=== PATIENT | female | born 1990 | race Caucasian/White ===

== ENCOUNTER → 2017-01-08 | Outpatient (CLI) | payer BC ==
[2017-01-08 16:38] LABS: BASOPHILS # (AUTO) 0.1 X10^3/uL (0.0-0.1); BASOPHILS % (AUTO) 0.5 % (0.2-1.0); EOSINOPHILS % (AUTO) 0.2 % (0.9-2.9); HEMATOCRIT 35.7 % (36.0-47.0); HEMOGLOBIN 12.3 g/dL (12.0-16.0); LYMPHOCYTES # (AUTO) 2.3 X10^3/uL (1.3-2.9); LYMPHOCYTES % (AUTO) 22.4 % (21.0-51.0); MEAN CORPUSCULAR HEMOGLOBIN 30.7 pg (27.0-34.0); MEAN CORPUSCULAR HGB CONC 34.5 g/dL (33.0-35.0); MEAN CORPUSCULAR VOLUME 88.9 fL (80.0-100.0); MEAN PLATELET VOLUME 11.8 fL (7.4-11.0); MONOCYTES # (AUTO) 0.5 x10^3/uL (0.3-0.8); MONOCYTES % (AUTO) 5.1 % (0.0-13.0); NEUTROPHILS # (AUTO) 7.3 x10^3/uL (2.2-4.8); NEUTROPHILS % (AUTO) 71.8 % (42.0-75.0); PLATELET COUNT 146 X10^3/uL (150.0-450.0); RED BLOOD COUNT 4.01 X10^6/uL (3.5-5.4); RED CELL DISTRIBUTION WIDTH 13.3 % (11.6-16.5); WHITE BLOOD COUNT 10.2 X10^3/uL (3.6-10.0)
[2017-01-08 17:02] LABS: BILIRUBIN,URINE NEGATIVE (NEGATIVE); BLOOD/HEMOGLOBIN,URINE NEGATIVE (NEGATIVE); GLUCOSE, URINE NEGATIVE (NEGATIVE); KETONES,URINE 3+ (NEGATIVE); LEUKOCYTE ESTERASE ,URINE 1+ (NEGATIVE); NITRITES,URINE NEGATIVE (NEGATIVE); PH,URINE 6.5 (5.0 - 8.0); PROTEIN,URINE 1+ (NEGATIVE); UROBILINOGEN,URINE NORMAL (NORMAL)
[2017-01-08 17:20] LABS: BLOOD UREA NITROGEN 12 mg/dL (7-18); CALCIUM 8.8 mg/dL (8.5-10.1); CARBON DIOXIDE 22.9 mmol/L (21-32); CHLORIDE 103 mmol/L (98-107); CREATININE 0.62 mg/dL (0.55-1.02); GLUCOSE 73 mg/dL (65-99); SODIUM 138 mmol/L (136-145); eGFR BLACK RACES > 60 (>60); eGFR NON BLACK RACES > 60 (>60)
[2017-01-08 17:30] LABS: AMORPHOUS SEDIMENT,UR TRACE /HPF (NEGATIVE); APPEARANCE,URINE CLEAR (CLEAR); BACTERIA,URINE TRACE /HPF (NEGATIVE); COLOR,URINE YELLOW (YELLOW); RBC,URINE NONE SEEN /HPF (NEGATIVE); SQUAMOUS EPITHELIAL CELL,UR NUMEROUS /HPF (NEGATIVE)
== END ==
LOC: LAB 15:31
PROVIDERS: ATTEND Specialist
DX: Z01.818 Encounter for other preprocedural examination (principal); Z34.83 Encounter for supervision of other normal pregnancy, third trimester
CPT/HCPCS: 36415; 80048; 81001; 85025; 86592; 86850; 86900; 86901

== ENCOUNTER 2017-01-15 06:10 | Inpatient (IN) | payer BC ==
[2017-01-15] MEDS ORDERED: D5LR 1000ML W PITOCIN 10 U/L 1,000 ML IV ONE (06:31)
[2017-01-15] MEDS ORDERED: D5 1/2 NS 1000ML W PITOCIN 20 U/L 1,000 ML IV ONE (06:32)
[2017-01-15] MEDS ORDERED: D5 1/2 NS 1000 ML 1,000 ML IV ONE (06:32)
[2017-01-15] MEDS ORDERED: PITOCIN ONE (06:32)
--- NOTE | 2017-01-15 07:02 | DR.OB ---
OB Quick Note - Assessment/Plan Assessment/Plan: L&D 01/15/17 at 6:45am S-No complaint. O-Afebrile,VSS CGI=093 with good LTV, +accel, no decel. CTX=none CVX=1cm/50%/-1/VTX AROM with clear fluid. IUPC placed but FSE not able to be placed. A-IUP at 38 6/7 weeks for induction A1DM Polyhydramnios Rh- P-Begin pitocin induction Anticipate
[2017-01-15] MEDS ORDERED: PITOCIN IVP ONE (07:10)
[2017-01-15] MEDS ORDERED: PITOCIN 10 UNITS in D5 LR 1000 ML 1,000 ML IV PRN (07:10)
[2017-01-15] MEDS ORDERED: MORPHINE SULFATE INJ 2 MG IVP PRN (07:10)
[2017-01-15] MEDS ORDERED: REGLAN INJ 10 MG VIAL IVP PRN ×3 (07:10→15:32)
[2017-01-15] MEDS ORDERED: PHENERGAN INJ 25 MG IV PRN ×2 (07:10→15:32)
[2017-01-15] MEDS ORDERED: D5 1/2 NS 1000 ML 1,000 ML IV SCH (07:10)
[2017-01-15] MEDS ORDERED: NUBAIN INJ 200 MG VIAL MULTIDOSE IVP PRN (07:10)
[2017-01-15] MEDS ORDERED: NAROPIN EPIDURAL 0.2% + FENTANYL 90MCG 60 ML EPI ONE (09:27)
[2017-01-15] MEDS ORDERED: FENTANYL INJ 100 mcg ONE (09:27)
[2017-01-15] MEDS ORDERED: LR 1000 ML IV 1,000 ML IV ONE ×3 (09:27→14:15)
[2017-01-15] MEDS ORDERED: NAROPIN EPIDURAL 0.2% 97 ML with FENTANYL INJ 250 mcg 150 MCG EPI PRN ×2 (09:28)
[2017-01-15] MEDS ORDERED: REGLAN INJ 10 MG VIAL ONE ×2 (09:32→11:43)
[2017-01-15] MEDS ORDERED: DIPRIVAN VIAL ONE (09:32)
[2017-01-15] MEDS ORDERED: ZOFRAN INJ 4 MG VIAL ONE (09:32)
[2017-01-15] MEDS ORDERED: XYLOCAINE 2 % (PLAIN) ONE (09:32)
--- NOTE | 2017-01-15 12:03 | DR.OB ---
OB Quick Note - Assessment/Plan Assessment/Plan: L&D 01/15/17 at 11:55am Pitocin=3mu/min. S-No complaint. s/p epidural. O-Afebrile,VSS IMY=119 with good LTV, +accel, no decel. CTX=q 2 min., about 45-55mmHg CVX=2cm/80%/-1/VTX A-IUP at 38 6/7 weeks for induction A1DM Polyhydramnios Rh- P-Cont. pitocin induction Anticipate
[2017-01-15] MEDS ORDERED: NS 50 ML IV + SPIKE MINIBAG* 50 ML IV ONE (14:11)
[2017-01-15] MEDS ORDERED: ANCEF VIAL 1 GM ONE (14:11)
[2017-01-15] MEDS ORDERED: XYLOCAINE 2% and EPINEPHRINE 1:100,000 ONE (14:12)
[2017-01-15] MEDS ORDERED: NS IRRIGATION 1000 ML 1,000 ML IR ONE (14:37)
[2017-01-15] MEDS ORDERED: DURAMORPH ONE (14:47)
[2017-01-15] MEDS ORDERED: NS 1000 ML 1,000 ML ONE (15:00)
[2017-01-15] MEDS ORDERED: PHENERGAN INJ 25 MG IVP PRN (15:22)
[2017-01-15] MEDS ORDERED: BENADRYL INJ 50 MG VIAL IVP PRN ×2 (15:22→15:32)
[2017-01-15] MEDS ORDERED: ZOFRAN INJ 4 MG VIAL IVP PRN ×2 (15:22→15:32)
[2017-01-15] MEDS ORDERED: MYLICON TAB 80 MG CHEW PO PRN (15:32)
[2017-01-15] MEDS ORDERED: ADACEL TDaP IM ONE (15:32)
[2017-01-15] MEDS ORDERED: PERCOCET TAB 5/325 MG PO PRN (15:32)
[2017-01-15] MEDS ORDERED: TORADOL 30 MG VIAL IVP PRN (15:32)
[2017-01-15] MEDS ORDERED: HYPERRHO S/D (or RHOGAM) IM PRN (15:32)
[2017-01-15] MEDS ORDERED: NARCAN INJ IVP PRN (15:32)
[2017-01-15] MEDS ORDERED: D5 1/2 NS 1000 ML 1,000 ML with PITOCIN 20 UNITS IV SCH ×2 (16:00)
[2017-01-15] MEDS: ZANTAC PO SCH (21:22)
[2017-01-16 05:25] LABS: HEMATOCRIT 26.9 % (36.0-47.0); HEMOGLOBIN 9.4 g/dL (12.0-16.0)
[2017-01-16] MEDS ORDERED: PERCOCET TAB 5/325 MG PO PRN (06:06)
[2017-01-16] MEDS: PRENATAL PLUS PO SCH (09:29)
[2017-01-16] MEDS: ZANTAC PO SCH ×2 (09:29→21:00)
[2017-01-16] MEDS: COLACE CAP 100 MG PO SCH ×2 (09:29→21:00)
[2017-01-16] MEDS: MOTRIN TAB 800 MG PO PRN ×2 (09:32→17:52)
[2017-01-16] MEDS: BACTROBAN OINT TOP SCH ×2 (13:39→22:00)
[2017-01-17] MEDS: MOTRIN TAB 800 MG PO PRN (05:42)
[2017-01-17] MEDS: BACTROBAN OINT TOP SCH (05:48)
[2017-01-17 08:20] VITALS: BP 131/73
[2017-01-17] MEDS: PRENATAL PLUS PO SCH (09:34)
[2017-01-17] MEDS: ZANTAC PO SCH (09:34)
[2017-01-17] MEDS: COLACE CAP 100 MG PO SCH (09:34)
== END 2017-01-17 11:05 | disposition home or self-care (01) | DRG 765 ==
LOC: LD 06:10 → MED/SURG 15:53
PROVIDERS: ADMIT Specialist; ATTEND Specialist
PROC: 3E033VJ Introduction of Other Hormone into Peripheral Vein, Percutaneous Approach (ICD-10-PCS; 2017-01-15)
PROC: 10907ZC Drainage of Amniotic Fluid, Therapeutic from Products of Conception, Via Natural or Artificial Opening (ICD-10-PCS; 2017-01-15)
PROC: 3E0234Z Introduction of Serum, Toxoid and Vaccine into Muscle, Percutaneous Approach (ICD-10-PCS; 2017-01-15)
PROC: 3E0234Z Introduction of Serum, Toxoid and Vaccine into Muscle, Percutaneous Approach (ICD-10-PCS; 2017-01-15)
PROC: 10D00Z1 Extraction of Products of Conception, Low, Open Approach (ICD-10-PCS; principal; 2017-01-15 12:15)
DX: O24.410 Gestational diabetes mellitus in pregnancy, diet controlled (principal); O40.3XX0 Polyhydramnios, third trimester, not applicable or unspecified; O36.0930 Maternal care for other rhesus isoimmunization, third trimester, not applicable or unspecified; Z37.0 Single live birth; O77.8 Labor and delivery complicated by other evidence of fetal stress; Z3A.38 38 weeks gestation of pregnancy; Z23 Encounter for immunization; Z29.13 Encounter for prophylactic Rho(D) immune globulin
CPT/HCPCS: 36415; 85014; 85018; 85461; 86850; 86900; 86901; A4216; A4222; S0197; J0690; J1885; J2001; J2405; J2590; J2765; J2790; J3010; J3490; J7042; J7120

== ENCOUNTER 2020-07-08 06:24 | Inpatient (IN) ==
[2020-07-08] MEDS ORDERED: D5 1/2 NS 1000 ML 1,000 ML IV SCH (06:30)
[2020-07-08] MEDS ORDERED: ANCEF VIAL 1 GRAM IVP ONE (06:30)
[2020-07-08] MEDS ORDERED: LR 1000 ML IV 1,000 ML IV ONE (06:34)
[2020-07-08] MEDS ORDERED: ANCEF 1 GRAM IV PREMIX* 1 G/50 ML BAG IV ONE (06:34)
[2020-07-08] MEDS ORDERED: NS 1000 ML 1,000 ML ONE (07:03)
[2020-07-08] MEDS ORDERED: DILAUDID INJ ONE (07:03)
[2020-07-08] MEDS ORDERED: DILAUDID INJ IVP PRN (08:45)
[2020-07-08] MEDS ORDERED: BENADRYL INJ 50 MG VIAL IVP PRN ×2 (08:45→09:32)
[2020-07-08] MEDS ORDERED: REGLAN INJ 10 MG VIAL IVP PRN ×2 (08:45→09:32)
[2020-07-08] MEDS ORDERED: PHENERGAN INJ 25 MG IM PRN ×2 (08:45→10:20)
[2020-07-08] MEDS ORDERED: ZOFRAN INJ 4 MG VIAL IVP PRN ×2 (08:45→09:32)
[2020-07-08] MEDS ORDERED: D5 1/2 NS 1L W PITOCIN 20 UNITS/L 20 UNITS/1,000 ML BAG IV ONE (09:04)
[2020-07-08] MEDS ORDERED: REGLAN INJ 10 MG VIAL ONE (09:10)
[2020-07-08] MEDS ORDERED: NARCAN INJ IVP PRN (09:32)
[2020-07-08] MEDS ORDERED: TORADOL 30 MG VIAL IVP PRN (09:32)
[2020-07-08] MEDS ORDERED: ADACEL or BOOSTRIX TDaP VACCINE IM ONE ×2 (09:32→12:54)
[2020-07-08] MEDS ORDERED: MYLICON TAB 80 MG CHEW PO PRN (09:32)
[2020-07-08] MEDS ORDERED: D5 1/2 NS 1000 ML 1,000 ML with PITOCIN 20 UNITS IV SCH ×2 (09:32)
[2020-07-08] MEDS ORDERED: HYPERRHO S/D (or RHOGAM) IM PRN (09:32)
[2020-07-08] MEDS ORDERED: PERCOCET TAB 5/325 MG PO PRN ×2 (09:32→17:12)
[2020-07-08] MEDS ORDERED: PHENERGAN INJ 25 MG IM ONE (10:24)
[2020-07-08] MEDS: PRENATAL PLUS PO SCH (11:23)
[2020-07-08] MEDS ORDERED: EPHEDRINE SULFATE INJ ONE (12:10)
[2020-07-08] MEDS ORDERED: PITOCIN ONE (12:10)
[2020-07-08] MEDS ORDERED: ZOFRAN INJ 4 MG VIAL ONE (12:10)
[2020-07-08] MEDS ORDERED: NS IRRIGATION* 1,000 ML ONE (17:05)
[2020-07-08] MEDS: COLACE CAP 100 MG PO SCH (21:06)
[2020-07-08] MEDS: BACTROBAN TOPICAL OINT TOP SCH (21:06)
[2020-07-09 04:21] LABS: HEMATOCRIT 35.9 % (36.0-47.0); HEMOGLOBIN 12.2 g/dL (12.0-16.0)
[2020-07-09] MEDS: BACTROBAN TOPICAL OINT TOP SCH ×3 (05:24→21:58)
[2020-07-09] MEDS: MOTRIN TAB 800 MG PO PRN ×2 (07:30→18:32)
[2020-07-09] MEDS: COLACE CAP 100 MG PO SCH ×2 (09:47→20:33)
[2020-07-09] MEDS: PRENATAL PLUS PO SCH (09:47)
[2020-07-10] MEDS: BACTROBAN TOPICAL OINT TOP SCH (05:15)
[2020-07-10 08:10] VITALS: BP 123/73
[2020-07-10] MEDS: PRENATAL PLUS PO SCH (08:15)
[2020-07-10] MEDS: COLACE CAP 100 MG PO SCH (08:15)
[2020-07-10] MEDS: MOTRIN TAB 800 MG PO PRN (09:00)
== END 2020-07-10 11:50 | disposition home or self-care (01) | DRG 784 ==
LOC: LD 06:24 → MED/SURG 09:34
PROVIDERS: ADMIT Specialist; ATTEND Specialist
DX: N85.8 Other specified noninflammatory disorders of uterus; Z23 Encounter for immunization; Z3A.38 38 weeks gestation of pregnancy; Z29.13 Encounter for prophylactic Rho(D) immune globulin; O34.211 Maternal care for low transverse scar from previous cesarean delivery; O13.3 Gestational [pregnancy-induced] hypertension without significant proteinuria, third trimester; Z37.0 Single live birth; Z30.2 Encounter for sterilization; O36.0930 Maternal care for other rhesus isoimmunization, third trimester, not applicable or unspecified